=== PATIENT | female | born 1970 | race Hispanic/Latino ===

== ENCOUNTER 2020-03-25 12:40 | Emergency (ER) | payer MEDICAID ==
[2020-03-25 14:37] LABS: Basophils % (Auto) 0.9 % (0.0-1.8); Eosinophils % (Auto) 1.6 % (0.0-4.3); Hematocrit 41.2 % (30.3-42.9); Hemoglobin 13.8 gm/dl (10.1-14.3); Lymphocytes % (Auto) 38.1 % (13.4-35.0); Mean Corpuscular HGB Conc 34 % (30-34); Mean Corpuscular Volume 95 fl (79-97); Monocytes # (Auto) 0.1 K/mm3 (0.0-0.8); Monocytes % (Auto) 3.9 % (0.0-7.3); Red Blood Count 4.34 M/mm3 (3.65-5.03); Red Cell Distribution Width 14.4 % (13.2-15.2)
[2020-03-25 14:41] LABS: Platelet Count 85 K/mm3 (140-440)
[2020-03-25 14:55] LABS: Blood Urea Nitrogen 11 mg/dL (7-17); Calcium 8.8 mg/dL (8.4-10.2); Hemolysis Index 11
[2020-03-25 14:56] LABS: BUN/Creatinine Ratio 37
[2020-03-25] MEDS ORDERED: SODIUM CHLORIDE 0.9% 1000 ML 1,000 ML IV ONE ×2 (16:42)
--- NOTE | 2020-03-25 18:37 | Emergency Department Report ---
ED Alcohol HPI - General Chief Complaint: Alcohol Stated Complaint: DETOX Time Seen by Provider: 03/25/20 16:41 Source: patient Mode of arrival: Ambulatory Limitations: No Limitations - History of Present Illness Initial Comments: Chief complaint: "I am so embarrassed." HPI: This is a 49-year-old female with history of depression and alcohol dependence who [facility]. Patient drinks a fifth of liquor daily. She drinks throughout the day and night. [facility] and rehabilitation for alcohol dependence. Patient states that due to severe depression for the past 3 weeks she has been bedbound. She is not eating food. Consequently she has very dry mouth and throat. Last drink was 4 hours prior to arrival. She denies any pain. She denies suicidal ideation. She has multiple social stressors at home dealing with relatives. MD Complaint: alcohol intoxication, medical clearance for det Last Drink: just E [employer] (4 hours prior to arrival) Chronic Alcohol Use: Yes Previous Visits for Alcohol Intoxication?: No Recent Trauma: No Associated Symptoms: depression, other (Dry mouth) Treatments Prior to Arrival: other (Intake at [facility]) - Related Data Allergies Allergy/AdvReac Type Severity Reaction Status Date / Time Penicillins Allergy Unknown Verified 03/25/20 13:44 ED Review of Systems ROS: Stated complaint: DETOX Other details as noted in HPI Comment: All other systems reviewed and negative Constitutional: denies: fever, malaise Respiratory: denies: cough, shortness of breath Cardiovascular: denies: chest pain Gastrointestinal: denies: abdominal pain, nausea, vomiting Psychiatric: depression. denies: suicidal thoughts ED Past Medical Hx - Past Medical History Previous Medical History?: Yes Additional medical history: Depression, alcohol dependence - Surgical History Past Surgical History?: Yes Additional Surgical History: CSECTION - Social History Substance Use Type: Alcohol ED Physical Exam - General Limitations: No Limitations General appearance: alert, in no apparent distress - Head Head exam: Present: atraumatic, normocephalic - Eye Eye exam: Present: normal appearance - ENT ENT exam: Present: mucous membranes dry, other (No oropharyngeal lesions) - Neck Neck exam: Present: normal inspection, full ROM - Respiratory Respiratory exam: Present: normal lung sounds bilaterally. Absent: respiratory distress, wheezes, rales, rhonchi - Cardiovascular Cardiovascular Exam: Present: regular rate, normal rhythm, normal heart sounds. Absent: systolic murmur, diastolic murmur, rubs, gallop - GI/Abdominal GI/Abdominal exam: Present: soft, normal bowel sounds. Absent: distended, tenderness, guarding, rebound - Extremities Exam Extremities exam: Present: normal inspection - Neurological Exam Neurological exam: Present: alert, oriented X3 - Psychiatric Psychiatric exam: Present: normal affect, depressed. Absent: suicidal ideation - Skin Skin exam: Present: warm, dry, intact, normal color. Absent: rash ED Course Vital Signs 03/25/20 03/25/20 03/25/20 13:47 16:31 17:00 Temperature 97.8 F Pulse Rate 107 H 95 H Respiratory 20 27 H Rate Blood Pressure 122/76 112/62 O2 Sat by Pulse 95 100 99 Oximetry 03/25/20 03/25/20 03/25/20 17:30 18:00 18:30 Temperature Pulse Rate 84 72 82 Respiratory 16 14 17 Rate Blood Pressure 126/71 126/71 126/71 O2 Sat by Pulse 99 99 97 Oximetry ED Medical Decision Making - Lab Data Result diagrams: 03/25/20 14:21 03/25/20 14:21 Laboratory Results - last 24 hr 03/25/20 03/25/20 03/25/20 14:21 14:21 14:21 WBC RBC Hgb Hct MCV MCH MCHC RDW Plt Count Lymph % (Auto) [place] % (Auto) Eos % (Auto) Baso % (Auto) Lymph # (Auto) [place] # (Auto) Eos # (Auto) Baso # (Auto) Seg Neutrophils % Seg Neutrophils # Sodium 133 L Potassium 3.7 Chloride 89.1 L Carbon Dioxide 17 L Anion Gap 31 BUN 11 Creatinine 0.3 L Estimated GFR > 60 BUN/Creatinine Ratio 37 Glucose 76 Calcium 8.8 Salicylates < 0.3 L Acetaminophen < 5.0 L Plasma/Serum Alcohol 03/25/20 03/25/20 14:21 14:21 WBC 2.6 L RBC 4.34 Hgb 13.8 Hct 41.2 MCV 95 MCH 32 MCHC 34 RDW 14.4 Plt Count 85 L Lymph % (Auto) 38.1 H [place] % (Auto) 3.9 Eos % (Auto) 1.6 Baso % (Auto) 0.9 Lymph # (Auto) 1.0 L [place] # (Auto) 0.1 Eos # (Auto) 0.0 Baso # (Auto) 0.0 Seg Neutrophils % 55.5 Seg Neutrophils # 1.4 L Sodium Potassium Chloride Carbon Dioxide Anion Gap BUN Creatinine Estimated GFR BUN/Creatinine Ratio Glucose Calcium Salicylates Acetaminophen Plasma/Serum Alcohol 0.40 H - Medical Decision Making 1. Acute alcohol intoxication: Blood alcohol level 0.4. Patient received IV fluid therapy. She was observed in emergency department for 8 hours. She is awake ambulatory. She has been protecting her airway throughout the ED observation. 2. History of depression: No suicidal ideation. Patient is now medically clear for psychiatric care. She is [facility]. Critical care attestation.: If time is entered above; I have spent that time in minutes in the direct care of this critically ill patient, excluding procedure time. ED Disposition Clinical Impression: Acute alcohol intoxication, Depression, Medical clearance for psychiatric admission Disposition: [id number] ANOTHER TYPE HLTHCARE Is pt being admited?: No Does the pt Need Aspirin: No Condition: Stable
[2020-03-25 20:22] LABS: Bilirubin,Urine NEG (Negative); Blood,Urine MOD (Negative); Color,Urine Yellow (Yellow); Mucus,Urine FEW /HPF; Urobilinogen,Urine < 2.0 mg/dL (<2.0)
[2020-03-25 20:23] LABS: Protein,Urine >500 mg/dL (Negative)
[2020-03-25 20:28] LABS: Amphetamine Screen,Urine Negative; Benzodiazepines Screen,Urine Negative; Cannabinoid Screen,Urine Negative; Methadone Screen,Urine Negative; Opiate Screen,Urine Negative
[2020-03-25 20:40] LABS: Cocaine Screen,Urine Positive
[2020-03-25 23:29] VITALS: BP 115/73
== END 2020-03-25 22:55 | disposition other institution (70) ==
LOC: ED 12:40
DX: F10.129 Alcohol abuse with intoxication, unspecified (principal); F32.9 Major depressive disorder, single episode, unspecified; Z04.6 Encounter for general psychiatric examination, requested by authority; Z88.0 Allergy status to penicillin
CPT/HCPCS: 36415; 80048; 80307; 81001; 85025; 96360; 96361; 99283; J7030; 80320; G0480